=== PATIENT | female | born 1995 | race Caucasian/White ===

== ENCOUNTER → 2025-01-20 13:57 | Outpatient (CLI) | payer OTHER, SELFPAY ==
--- NOTE | 2025-01-20 14:00 | DI.US.S_ITS ---
PROCEDURE: US PELVIC COMPLETE INDICATIONS: Irregular Cycle TECHNIQUE: Real-time scanning was performed of the pelvic organs, with image documentation. Additional endovaginal scanning was necessary due to incomplete visualization of the adnexal and endometrial structures by transabdominal scanning. COMPARISON: None. FINDINGS: Uterus: Uterus is anteverted and normal in size at 7.8 x 5.8 x 4.4 cm. The myometrium is homogeneous. The endometrium measures 20 mm combined thickness. Intrauterine device in appropriate position in the endometrial canal Ovaries: Right ovary is partially imaged trans abdominally but not seen transvaginally. Left ovary measures 3.6 x 1.9 x 2.0 cm. Less than 12 follicles noted. Other: No pathologic free abdominal or pelvic fluid. IMPRESSION: Endometrial hyperplasia measuring 2.0 cm. Consider follow-up exam in 10-12 weeks further assess Intrauterine device in appropriate position Approved by: Maximilian Baer M.D. on 01/21/2025 at 16:11
== END ==
PROVIDERS: PCP Naturopath; Referring Provider Naturopath; Visit Provider Naturopath
DX: N92.1 Excessive and frequent menstruation with irregular cycle (principal); N85.00 Endometrial hyperplasia, unspecified; Z97.5 Presence of (intrauterine) contraceptive device
CPT/HCPCS: 76830; 76856